=== PATIENT | male | born 1955 | race Caucasian/White ===

== ENCOUNTER 2016-03-02 20:11 | Emergency (ER) | payer OTHER | END 2016-03-02 22:41 | disposition home or self-care (01) | LOC: FASTR 20:11 | DX: S00.31XA Abrasion of nose, initial encounter (principal); S80.811A Abrasion, right lower leg, initial encounter; S90.511A Abrasion, right ankle, initial encounter; W17.89XA Other fall from one level to another, initial encounter; S72.91XA Unspecified fracture of right femur, initial encounter for closed fracture | CPT/HCPCS: 70450; 70486; 72100; 90471 ==